=== PATIENT | female | born 1940 | race Caucasian/White ===

== ENCOUNTER 2018-05-23 00:43 | Inpatient (IN) | payer OTHER ==
[2018-05-23 01:26] LABS: ADD MAN DIFF? NO
[2018-05-23 01:28] LABS: WHITE BLOOD COUNT 6.8 10^3/ul (4.8-10.8)
[2018-05-23 01:28] LABS: BASOPHILS % 0.3 % (0.0-2.0); HEMATOCRIT 38.2 % (37.0-47.0); HEMOGLOBIN 12.4 g/dl (12.0-16.0); LYMPHOCYTES # 1.4 10^3/ul (0.8-2.9); LYMPHOCYTES % 20.7 % (15.0-51.0); MEAN CORPUSCULAR HEMOGLOBIN 29.1 pg (29.0-33.0); MEAN CORPUSCULAR HGB CONC 32.5 g/dl (32.0-37.0); MEAN CORPUSCULAR VOLUME 89.7 fl (82.0-101.0); MEAN PLATELET VOLUME 9.6 fl (7.4-10.4); MONOCYTE # 0.4 10^3/ul (0.3-0.9); MONOCYTES % 5.4 % (0.0-11.0); NEUTROPHILS % 73.2 % (39.0-77.0); PLATELET COUNT 241 10^3/UL (140-415); RED BLOOD COUNT 4.26 10^6/ul (4.20-5.40); RED CELL DISTRIBUTION WIDTH 13.2 % (11.5-14.5)
[2018-05-23 01:48] LABS: ALANINE AMINOTRANSFERASE 11 IU/L (13-69); ALBUMIN/GLOBULIN RATIO 1.02; ALKALINE PHOSPHATASE 133 IU/L (42-121); ANION GAP 10 (5-13); ASPARTATE AMINO TRANSFERASE 51 IU/L (15-46); BILIRUBIN,INDIRECT 0.2 mg/dl (0-1.1); BILIRUBIN,TOTAL 0.2 mg/dl (0.2-1.3); BLOOD UREA NITROGEN 23 mg/dl (7-20); CARBON DIOXIDE 25 mmol/L (21-31); CHLORIDE 108 mmol/L (97-110); CREATININE 0.71 mg/dl (0.44-1.00); GLUCOSE 134 mg/dl (70-220); LIPASE 67 U/L (23-300); POTASSIUM 4.4 mmol/L (3.5-5.1); SODIUM 143 mmol/L (135-144); TOTAL PROTEIN 7.9 g/dl (6.1-8.1)
[2018-05-23 02:00] LABS: B-TYPE NATRIURETIC PEPTIDE 392 PG/ML (0-450)
[2018-05-23] MEDS: SOD CHLORIDE 0.9% 500 ML IV (03:11)
[2018-05-23 07:44] LABS: CREATINE KINASE 666 IU/L (23-200)
[2018-05-23 07:57] LABS: CK INDEX 10.9
[2018-05-23] MEDS ORDERED: ACETAMINOPHEN 325 MG TAB PO (09:30)
[2018-05-23] MEDS ORDERED: NACL 0.9% 3 ML SYG IV (09:30)
[2018-05-23] MEDS ORDERED: ONDANSETRON 4 MG INJ IV (09:30)
[2018-05-23] MEDS ORDERED: morphine 2 MG INJ IV (09:30)
[2018-05-23] MEDS ORDERED: ASPIRIN 81 MG TAB (09:35)
[2018-05-23] MEDS: ASPIRIN 81 MG TAB PO (09:42)
[2018-05-23] MEDS: FAMOTIDINE 20 MG TAB PO ×2 (09:45→20:21)
[2018-05-23] MEDS ORDERED: IODIXANOL LOCM 100 ML BTL (10:36)
[2018-05-23] MEDS ORDERED: LIDOCAINE 1% (MDV) 20 ML INJ (10:36)
[2018-05-23] MEDS ORDERED: VERAPAMIL 5 MG INJ (10:37)
[2018-05-23] MEDS ORDERED: HEPARIN 1000 UNITS/ML 10 ML INJ (10:37)
[2018-05-23] MEDS ORDERED: NITROGLYCERIN (IC) 100 MCG/ML INJ (10:37)
[2018-05-23] MEDS ORDERED: MIDAZOLAM 1 MG/ML 2 ML INJ (11:11)
[2018-05-23] MEDS ORDERED: TICAGRELOR 90 MG TABLET (12:08)
[2018-05-23] MEDS ORDERED: BIVALIRUDIN 250MG /NS 50 ML 100 ML IVPB (12:23)
[2018-05-23] MEDS: BIVALIRUDIN 250MG /NS 50 ML 50 ML IVPB ×2 (12:30→14:27)
[2018-05-23] MEDS: SOD CHLORIDE 0.9% 1,000 ML IV (14:32)
[2018-05-23 15:12] LABS: CREATINE KINASE 769 IU/L (23-200)
[2018-05-23 15:23] LABS: CK INDEX 10.4
[2018-05-23] MEDS: ATORVASTATIN 80 MG TAB PO (20:21)
[2018-05-23] MEDS: TICAGRELOR 90 MG TABLET PO (20:23)
[2018-05-23 20:41] LABS: CREATINE KINASE 644 IU/L (23-200)
[2018-05-23 20:55] LABS: CK INDEX 8.2
[2018-05-23] MEDS ORDERED: ZOLPIDEM 5 MG TAB PO (21:00)
[2018-05-24 04:53] LABS: ADD MAN DIFF? NO
[2018-05-24 04:54] LABS: BASOPHILS % 0.5 % (0.0-2.0); EOSINOPHILS # 0.1 10^3/ul (0.0-0.5); EOSINOPHILS % 1.4 % (0.0-7.0); HEMATOCRIT 32.3 % (37.0-47.0); HEMOGLOBIN 10.5 g/dl (12.0-16.0); LYMPHOCYTES # 1.6 10^3/ul (0.8-2.9); LYMPHOCYTES % 24.5 % (15.0-51.0); MEAN CORPUSCULAR HEMOGLOBIN 28.8 pg (29.0-33.0); MEAN CORPUSCULAR HGB CONC 32.5 g/dl (32.0-37.0); MEAN CORPUSCULAR VOLUME 88.7 fl (82.0-101.0); MEAN PLATELET VOLUME 9.9 fl (7.4-10.4); MONOCYTE # 0.6 10^3/ul (0.3-0.9); MONOCYTES % 9.5 % (0.0-11.0); NEUTROPHIL # 4.1 10^3/ul (1.6-7.5); NEUTROPHILS % 63.8 % (39.0-77.0); PLATELET COUNT 193 10^3/UL (140-415); RED BLOOD COUNT 3.64 10^6/ul (4.20-5.40); RED CELL DISTRIBUTION WIDTH 13.4 % (11.5-14.5)
[2018-05-24 04:54] LABS: WHITE BLOOD COUNT 6.4 10^3/ul (4.8-10.8)
[2018-05-24 05:13] LABS: HEMOGLOBIN A1C 5.5 % (0-5.9)
[2018-05-24 05:22] LABS: ANION GAP 5 (5-13); BLOOD UREA NITROGEN 18 mg/dl (7-20); CARBON DIOXIDE 23 mmol/L (21-31); CHLORIDE 112 mmol/L (97-110); CREATININE 0.65 mg/dl (0.44-1.00); GLUCOSE 87 mg/dl (70-220); POTASSIUM 3.8 mmol/L (3.5-5.1); SODIUM 140 mmol/L (135-144)
[2018-05-24] MEDS: ASPIRIN (EC) 81 MG TAB PO (08:52)
[2018-05-24] MEDS: FAMOTIDINE 20 MG TAB PO (08:52)
[2018-05-24] MEDS: TICAGRELOR 90 MG TABLET PO (08:53)
== END 2018-05-24 13:21 | disposition home health service (06) | DRG 247 ==
LOC: E/R 00:43 → CCL 10:30 → SDS 10:30 → CCL 10:31 → ICU 10:31
PROC: 027034Z Dilation of Coronary Artery, One Artery with Drug-eluting Intraluminal Device, Percutaneous Approach (ICD-10-PCS; principal; 2018-05-23 10:30)
PROC: 4A023N7 Measurement of Cardiac Sampling and Pressure, Left Heart, Percutaneous Approach (ICD-10-PCS; 2018-05-23 10:30)
PROC: B211YZZ Fluoroscopy of Multiple Coronary Arteries using Other Contrast (ICD-10-PCS; 2018-05-23 10:30)
DX: I21.4 Non-ST elevation (NSTEMI) myocardial infarction (principal); I25.10 Atherosclerotic heart disease of native coronary artery without angina pectoris; I25.2 Old myocardial infarction; I10 Essential (primary) hypertension; Z86.73 Personal history of transient ischemic attack (TIA), and cerebral infarction without residual deficits; Z73.6 Limitation of activities due to disability
CPT/HCPCS: 36415; 71045; 80048; 80053; 82550; 82553; 83036; 83690; 83880; 84484; 85025; 87081; 92928; 93005; 93306; 93458; 99285-25